=== PATIENT | female | born 1995 ===

== ENCOUNTER 2019-02-27 12:40 | Inpatient (IN) ==
[2019-02-27] MEDS ORDERED: ONDANSETRON 4 MG/2 ML VIAL IV PRN (12:49)
[2019-02-27] MEDS ORDERED: MEPERIDINE 50 MG/1 ML VIAL IV PRN (12:49)
[2019-02-27 13:12] LABS: Basophils % 0.2 % (0.0-0.8); Eosinophils # 0.1 10*3/uL (0.0-0.87); Eosinophils % 0.7 % (0.00-10.9); Hematocrit 31.3 VOL% (35.7-47.0); Hemoglobin 10.6 GM/DL (12.0-16.0); Immature Granulocytes % 0.9 %; Immature Granulocytes Absolute 0.07 #; Lymphocytes # 2.1 10*3/uL (1.4-4.0); Lymphocytes % 25.9 % (21.3-54.2); Mean Corpuscular HGB Conc 33.9 GM/DL (32-36); Mean Corpuscular Hemoglobin 31 PG (27-34); Mean Corpuscular Volume 90.7 FL (87-102); Mean Platelet Volume 13.4 FL (9.6-12.0); Monocytes # 0.7 10*3/uL (0.11-0.8); Monocytes % 8.9 % (1.7-12.7); Neutrophils # 5.2 10*3/uL (1.4-7.4); Neutrophils % 63.4 % (38.7-73.9); Platelet Count 103 T/CUMM (130-400); Red Blood Count 3.45 MC/CUMM (3.8-5.5); White Blood Count 8.2 T/CUMM (4-12)
[2019-02-27] MEDS: LACTATED RINGERS 1,000 ML IV SCH ×2 (13:25→23:45)
[2019-02-27 13:40] LABS: Alanine Aminotransferase 19 U/L (13-56); Albumin 2.4 G/DL (3.4-5.0); Alkaline Phosphatase 103 U/L (45-117); Aspartate Amino Transferase 15 U/L (0-37); Bilirubin,Total < 0.39 MG/DL (0.2-1.0); Blood Urea Nitrogen 7 MG/DL (7-18); Calcium 7.8 MG/DL (8.5-10.1); Glucose 73 MG/DL (74-106); Osmolality,Calculated 277.3 MOS/KG (273-304); Potassium 3.6 MMOL/L (3.5-5.1); Sodium 141 MMOL/L (136-145)
[2019-02-27] MEDS ORDERED: miSOPROStol 200 MCG TABLET VAG ONE (14:00)
[2019-02-27] MEDS: BUTORPHANOL 1 MG/ML VIAL IV PRN ×2 (17:47→20:16)
[2019-02-27] MEDS: miSOPROStol 200 MCG TABLET VAG SCH ×2 (18:10→23:44)
[2019-02-27] MEDS ORDERED: OXYTOCIN/LR 30 UNIT/1,000 ML BAG IV ONE (20:21)
[2019-02-28] MEDS ORDERED: IBUPROFEN 800 MG TABLET PO PRN ×2 (01:02→01:23)
[2019-02-28] MEDS ORDERED: OXYTOCIN/LR 20 UNIT/1,000 ML BAG IV ONE (01:23)
[2019-02-28] MEDS ORDERED: HYDROCORTISONE 2.5% RECTAL CREAM 30 GM TUBE TOP PRN (01:23)
[2019-02-28] MEDS ORDERED: oxyCODONE/ACETAMINOPHEN 5-325 MG TABLET PO PRN ×2 (01:23)
[2019-02-28] MEDS ORDERED: MEASLES/MUMPS/RUBELLA VACCINE 0.5 ML VIAL SUBCUT ONE (01:23)
[2019-02-28] MEDS ORDERED: BENZOCAINE 20%/MENTHOL 0.5% SPRAY 56 GM CAN TOP PRN (01:23)
[2019-02-28] MEDS ORDERED: LANOLIN 50% CREAM 0.3 OZ TUBE TOP PRN (01:23)
[2019-02-28] MEDS ORDERED: RHO(D) IMMUNE GLOBULIN 300 MCG SYRINGE IM ONE (01:23)
[2019-02-28] MEDS ORDERED: ONDANSETRON 4 MG/2 ML VIAL IV PRN (01:23)
[2019-02-28] MEDS ORDERED: WITCH HAZEL PADS 100/JAR TOP PRN (01:23)
[2019-02-28] MEDS ORDERED: BISACODYL 10 MG SUPP RECTAL PRN (01:23)
[2019-02-28] MEDS ORDERED: DIPH/TET/ACEL PERT BOOSTER VACCINE 0.5 ML VIAL IM ONE (01:23)
[2019-02-28] MEDS ORDERED: ACETAMINOPHEN 325 MG TABLET PO PRN (01:23)
[2019-02-28] MEDS: ceFAZolin 2,000 MG in PREMIX 1 EACH IV SCH ×2 (02:13→09:57)
[2019-02-28 05:53] LABS: Basophils % 0.1 % (0.0-0.8); Eosinophils # 0.1 10*3/uL (0.0-0.87); Eosinophils % 0.5 % (0.00-10.9); Hematocrit 27.8 VOL% (35.7-47.0); Hemoglobin 9.4 GM/DL (12.0-16.0); Immature Granulocytes % 0.5 %; Immature Granulocytes Absolute 0.05 #; Lymphocytes # 2.4 10*3/uL (1.4-4.0); Lymphocytes % 26.5 % (21.3-54.2); Mean Corpuscular HGB Conc 33.8 GM/DL (32-36); Mean Corpuscular Hemoglobin 31 PG (27-34); Mean Corpuscular Volume 91.4 FL (87-102); Mean Platelet Volume 13.3 FL (9.6-12.0); Monocytes # 0.9 10*3/uL (0.11-0.8); Monocytes % 9.6 % (1.7-12.7); Neutrophils # 5.8 10*3/uL (1.4-7.4); Neutrophils % 62.8 % (38.7-73.9); Platelet Count 86 T/CUMM (130-400); Red Blood Count 3.04 MC/CUMM (3.8-5.5); Red Cell Distribution Width 13.8 % (9.3-17.3); White Blood Count 9.2 T/CUMM (4-12)
[2019-02-28 06:47] LABS: Giant Platelets Few; Platelet Estimate Decreased
[2019-02-28 06:48] LABS: Anisocytosis Slight; Macrocytosis Slight
[2019-02-28] MEDS ORDERED: DOCUSATE SODIUM 100 MG CAPSULE PO SCH ×2 (09:00)
[2019-02-28 15:22] VITALS: BP 126/75
== END 2019-02-28 18:20 | disposition home or self-care (01) | DRG 560 ==
LOC: N.LDOUT 12:40 → N.LD 12:42 → N.OB 12:50
PROVIDERS: ADMIT Obstetrics & Gynecology; ATTEND Obstetrics & Gynecology

== ENCOUNTER 2021-02-19 09:56 | Inpatient (IN) ==
[2021-02-19] MEDS: LACTATED RINGERS 1,000 ML IV SCH ×2 (10:17→14:07)
[2021-02-19] MEDS ORDERED: MEPERIDINE 50 MG/1 ML VIAL IV PRN (10:30)
[2021-02-19] MEDS ORDERED: BUTORPHANOL 2 MG/ML VIAL IV PRN (10:30)
[2021-02-19] MEDS ORDERED: OXYTOCIN/LR 20 UNIT/1,000 ML BAG IV SCH (10:30)
[2021-02-19] MEDS ORDERED: ONDANSETRON 4 MG/2 ML VIAL IV PRN ×2 (10:30→23:39)
[2021-02-19 10:44] LABS: Basophils % 0.4 % (0.0-0.8); Eosinophils # 0.1 10*3/uL (0.0-0.87); Eosinophils % 0.8 % (0.00-10.9); Hematocrit 36.2 VOL% (35.7-47.0); Hemoglobin 11.4 GM/DL (12.0-16.0); Immature Granulocytes % 1.5 %; Immature Granulocytes Absolute 0.11 #; Lymphocytes # 1.4 10*3/uL (1.4-4.0); Lymphocytes % 18.7 % (21.3-54.2); Mean Corpuscular HGB Conc 31.5 GM/DL (32-36); Mean Platelet Volume 12.2 FL (9.6-12.0); Monocytes % 14.2 % (1.7-12.7); Neutrophils % 64.4 % (38.7-73.9); Platelet Count 146 T/CUMM (130-400); Red Blood Count 4.21 MC/CUMM (3.8-5.5); Red Cell Distribution Width 21.5 % (9.3-17.3); White Blood Count 7.4 T/CUMM (4-12)
[2021-02-19 11:05] LABS: Alanine Aminotransferase 12 U/L (13-56); Albumin 2.5 G/DL (3.4-5.0); Alkaline Phosphatase 226 U/L (45-117); Aspartate Amino Transferase 13 U/L (0-37); Bilirubin,Total < 0.39 MG/DL (0.2-1.0); Blood Urea Nitrogen 8 MG/DL (7-18); Calcium 8.9 MG/DL (8.5-10.1); Carbon Dioxide 19 MMOL/L (21-32); Estimated Glom Filtration Rate 125 ML/MIN; Glucose 97 MG/DL (74-106); Osmolality,Calculated 272.7 MOS/KG (273-304); Potassium 3.6 MMOL/L (3.5-5.1); Sodium 138 MMOL/L (136-145); Total Protein 6.7 G/DL (6.4-8.2); Uric Acid 4.3 MG/DL (2.6-6.0)
[2021-02-19] MEDS ORDERED: CITRIC ACID/SODIUM CITRATE 30 ML UDCUP PO ONE (11:46)
[2021-02-19] MEDS ORDERED: LACTATED RINGERS 1,000 ML IV ONE (11:46)
[2021-02-19] MEDS ORDERED: FAMOTIDINE 20 MG/2 ML VIAL IV ONE (11:46)
[2021-02-19] MEDS ORDERED: NALOXONE 0.4 MG/ML VIAL IV PRN (11:47)
[2021-02-19] MEDS ORDERED: ePHEDrine 50 MG/ML VIAL IV PRN (11:47)
[2021-02-19] MEDS ORDERED: PROMETHAZINE 25 MG/1 ML VIAL IM ONE (11:47)
[2021-02-19] MEDS ORDERED: hydrOXYzine HCL 25 MG/1 ML VIAL IM PRN (11:47)
[2021-02-19] MEDS ORDERED: diphenhydrAMINE 50 MG/1 ML VIAL IV PRN ×2 (11:47)
[2021-02-19] MEDS ORDERED: fentaNYL 2 MCG/ROPIV 0.2% EPID 100 ML EPIDURAL SCH (12:00)
[2021-02-19] MEDS ORDERED: TRANEXAMIC ACID 1,000 MG/10 ML VIAL ONE (18:43)
[2021-02-19] MEDS ORDERED: miSOPROStoL 200 MCG TABLET ONE (18:43)
[2021-02-19] MEDS ORDERED: OXYTOCIN/LR 20 UNIT/1,000 ML BAG IV ONE ×2 (18:43→23:39)
[2021-02-19] MEDS ORDERED: CARBOPROST TROMETHAMINE 250 MCG/ML AMP IM ONE ×2 (18:44→22:33)
[2021-02-19] MEDS ORDERED: METHYLERGONOVINE 0.2 MG/1 ML AMP ONE ×2 (18:44→22:32)
[2021-02-19 18:45] LABS: Bacteria,Urine Occasional /HPF (Few); Bilirubin,Urine Negative (Negative); Blood, Urine Negative (Negative); Glucose,Urine (UA) Negative (Negative); Ketones,Urine 20 mg/dL (Negative); Mucus,Urine Occasional /LPF (Occasional); Nitrite,Urine Negative (Negative); Protein,Urine Negative; RBC,Urine 5 /HPF (0-4); Squamous Epithelial Cell,Urine Occasional /HPF (0-10); Urine Appearance CLEAR (Clear); Urine Color Straw (Yellow); Urine Specific Gravity 1.012 (1.001-1.035); Urine Urobilinogen < 2.0 EU/DL (0.2-1.0); WBC,Urine 3 /HPF (0-6)
[2021-02-19] MEDS ORDERED: OXYTOCIN/LR 30 UNIT/1,000 ML BAG IV ONE ×2 (18:45→23:50)
[2021-02-19] MEDS ORDERED: LIDOCAINE 1% 50 ML VIAL ONE (19:58)
[2021-02-19] MEDS ORDERED: SODIUM CHLORIDE 0.9% 0 ML IV ONE (19:58)
[2021-02-19] MEDS ORDERED: ceFAZolin 2,000 MG in PREMIX 1 EACH IV ONE (22:30)
[2021-02-19] MEDS ORDERED: OXYTOCIN 10 UNIT/ML VIAL ONE (22:33)
[2021-02-19] MEDS ORDERED: ONDANSETRON 4 MG/2 ML VIAL ONE (22:53)
[2021-02-19] MEDS ORDERED: LIDOCAINE MPF 2% /EPI 20 ML VIAL ONE (22:53)
[2021-02-19 23:29] LABS: Cord Arterial Blood HCO3 19.4 MMOL/L
[2021-02-19 23:32] LABS: Cord Venous Blood HCO3 21.4 MMOL/L; Cord Venous Blood PCO2 47.6 MMHG; Cord Venous Blood PO2 32.2
[2021-02-19] MEDS ORDERED: RHO(D) IMMUNE GLOBULIN 300 MCG SYRINGE IM ONE (23:39)
[2021-02-19] MEDS ORDERED: MAGNESIUM HYDROXIDE SUSP 30 ML UDCUP PO PRN (23:39)
[2021-02-19] MEDS ORDERED: SIMETHICONE CHEW 80 MG TABLET PO PRN (23:39)
[2021-02-19] MEDS ORDERED: ACETAMINOPHEN 325 MG TABLET PO PRN (23:39)
[2021-02-19] MEDS ORDERED: LACTATED RINGERS 1,000 ML IV SCH (23:45)
[2021-02-20] MEDS ORDERED: KETOROLAC 30 MG/1 ML VIAL ONE (02:50)
[2021-02-20] MEDS: KETOROLAC 30 MG/1 ML VIAL IV SCH ×3 (03:01→15:15)
[2021-02-20 06:12] LABS: Basophils % 0.2 % (0.0-0.8); Eosinophils % 0.1 % (0.00-10.9); Hemoglobin 10.2 GM/DL (12.0-16.0); Immature Granulocytes % 0.5 %; Immature Granulocytes Absolute 0.07 #; Lymphocytes # 1.2 10*3/uL (1.4-4.0); Lymphocytes % 9.3 % (21.3-54.2); Mean Corpuscular HGB Conc 31.9 GM/DL (32-36); Mean Corpuscular Volume 86.7 FL (87-102); Mean Platelet Volume 12.2 FL (9.6-12.0); Monocytes % 9.5 % (1.7-12.7); Neutrophils % 80.4 % (38.7-73.9); Platelet Count 115 T/CUMM (130-400); Red Blood Count 3.69 MC/CUMM (3.8-5.5); White Blood Count 13.1 T/CUMM (4-12)
[2021-02-20] MEDS: ACETAMINOPHEN 500 MG TABLET PO SCH ×3 (06:56→19:32)
[2021-02-20] MEDS: MULTIVITAMIN (PRENATAL) TABLET PO SCH (08:36)
[2021-02-20] MEDS: DOCUSATE SODIUM 100 MG CAPSULE PO SCH ×2 (08:36→19:32)
[2021-02-20 12:32] LABS: Basophils % 0.3 % (0.0-0.8); Eosinophils % 0.2 % (0.00-10.9); Hematocrit 28.4 VOL% (35.7-47.0); Immature Granulocytes % 0.8 %; Immature Granulocytes Absolute 0.08 #; Lymphocytes # 1.1 10*3/uL (1.4-4.0); Lymphocytes % 10.4 % (21.3-54.2); Mean Corpuscular HGB Conc 31.7 GM/DL (32-36); Mean Corpuscular Volume 86.1 FL (87-102); Monocytes % 12.3 % (1.7-12.7); Platelet Count 109 T/CUMM (130-400); Red Cell Distribution Width 20.8 % (9.3-17.3); White Blood Count 10.1 T/CUMM (4-12)
[2021-02-20] MEDS: IBUPROFEN 800 MG TABLET PO PRN (19:32)
[2021-02-21] MEDS ORDERED: ACETAMINOPHEN 500 MG TABLET ONE (01:56)
[2021-02-21] MEDS: ACETAMINOPHEN 500 MG TABLET PO SCH (02:30)
[2021-02-21] MEDS: KETOROLAC 30 MG/1 ML VIAL IV SCH (02:39)
[2021-02-21] MEDS: MULTIVITAMIN (PRENATAL) TABLET PO SCH (09:00)
[2021-02-21] MEDS: DOCUSATE SODIUM 100 MG CAPSULE PO SCH (09:01)
[2021-02-21] MEDS: IBUPROFEN 800 MG TABLET PO PRN (09:01)
[2021-02-21 11:38] VITALS: BP 107/68
== END 2021-02-21 14:42 | disposition home or self-care (01) | DRG 540 ==
LOC: N.LD 09:56 → N.OB 02-20 05:11
PROVIDERS: ADMIT Obstetrics & Gynecology; ATTEND Obstetrics & Gynecology
PROC: LDCSECT (ICD-10-PCS; 2021-02-19 23:00)